=== PATIENT | female | born 1970 | race Caucasian/White ===

== ENCOUNTER 2022-07-23 12:05 | Emergency (ER) | payer OTHER, SELFPAY ==
--- NOTE | ~2022-07-23 | XR_ITS ---
EXAMINATION: XR ankle RT min 3V INDICATION: Right ankle pain TECHNIQUE: Four views of the right ankle are obtained. COMPARISON: None available FINDINGS: Bone alignment is normal. There is a possible tiny avulsion at the tip of the medial malleo kim. There is mild soft tissue swelling of ankle. A plantar calcaneal enthesophyte is noted. IMPRESSION: 1. Possible tiny avulsion injury involving the tip of the medial malleolus. Reviewed, dictated and finalized at location A.
[2022-07-23 12:25] VITALS: BP 134/81; PULSE 82; RESP 18; TEMP 36.7; O2SAT 100
[2022-07-23 12:26] VITALS: BP 134/81; PULSE 82; RESP 18; TEMP 36.7; O2SAT 100
--- NOTE | 2022-07-23 12:26 | ED.GENADULT ---
HPI - General Adult General Chief complaint: Extremity Injury, Lower Stated complaint: Right Ankle Injury Source: patient Mode of arrival: ambulatory Limitations: no limitations History of Present Illness HPI narrative: Patient presents for evaluation of right ankle pain and swelling for the past three days. Symptoms occurred after she twisted her right ankle. She fell down onto concrete. She did not hit her head. No loss of consciousness. She now reports 3 to 5/10 pain in the right ankle. She has associated soft tissue swelling and bruising. She has been applying ice and took some ibuprofen for her symptoms. She is able to tolerate weighbearing. Related Data Home Medications Medication Instructions Recorded Confirmed amlodipine 10 mg tablet 10 mg PO DAILY 07/23/22 07/23/22 duloxetine 60 mg capsule,delayed 60 mg PO DAILY 07/23/22 07/23/22 release metformin 500 mg tablet,extended See Rx Instructions .Route .COMPLEX 07/23/22 07/23/22 release 24 hr omeprazole 20 mg capsule,delayed 20 mg PO BID 07/23/22 07/23/22 release Allergies Allergy/AdvReac Type Severity Reaction Status Date / Time sulfate ion AdvReac Other Verified 07/23/22 12:27 Review of Systems Review of Systems: CONSTITUTIONAL: Denies fever, chills, or sweats. EYES: Denies visual changes, redness, or discharge. ENT: Denies rhinorrhea, congestion, sore throat, or otalgia. CARDIOVASCULAR: Denies chest pain, palpitations, or edema. RESPIRATORY: Denies cough or dyspnea. GASTROINTESTINAL: Denies abdominal pain, nausea, vomiting, or diarrhea. GENITOURINARY: Denies dysuria or hematuria. SKIN: Reports bruising to the right ankle and right foot MUSCULOSKELETAL: Reports pain in the right ankle. NEUROLOGIC: Denies headache, numbness, dizziness, or weakness. PSYCHIATRIC: Denies anxiety or depression. [facility] Past Medical History Medical History (Updated 07/23/22 @ 12:54 by Twin Stroud, CORTNEY, GENET) Anxiety Diabetes Hypertension Surgical History Surgical History History of History of cholecystectomy History of reduction mammoplasty Family History Family History Mother Family history non-contributory Social History Social History (Updated 07/23/22 @ 12:28 by Twin Stroud, [facility], ) Smoking status: Never smoker Substance use: never Gender identity (if verbalized by the patient): Female Exam Narrative: GENERAL: Well-appearing, well-nourished, and in no acute distress. HEAD: Normocephalic, atraumatic. EYES: PERRLA and EOMI. ENT: Nares clear, no rhinorrhea or epistaxis. Mucous membranes moist. Oropharynx without tonsillar hypertrophy exudate or other lesions. Bilateral TMs pearly schmidt nonbulging NECK: Supple. No adenopathy or masses. No carotid bruits or JVD CHEST: Clear to auscultation. No respiratory distress. No wheezes rales or rhonchi HEART: Regular rate and rhythm. No murmur heard. Normal peripheral pulses. ABDOMEN: Soft, nontender, nondistended, normal active bowel sounds. EXTREMITIES: Tenderness noted over lateral aspect of the right ankle. She is able to dorsi and plantar flex right foot. 1+ nonpitting edema to the right ankle. SKIN: Ecchymosis noted to the lateral aspect of her right foot, into medial and lateral aspects of the right ankle NEURO: No focal deficits. Alert and oriented x3. PSYCH: Normal mood and affect. Course Course Emergency Course: This is a 52-year-old female who presented for evaluation of right ankle pain. Questionable avulsion fracture of the medial malleolus on the right. Placed in OCL with ankle stirrup. Provided with crutches. Advised nonweightbearing status until seen by Orthopedics. I offered to provide her with a script for analgesics, but she declined. Follow up with Ortho this week. Go to the ER for intractable pain. Patient in agreement wi
== END 2022-07-23 13:00 | disposition home or self-care (01) ==
PROVIDERS: Emergency Provider Nurse Practitioner
DX: S82.51XA Displaced fracture of medial malleolus of right tibia, initial encounter for closed fracture (principal); W19.XXXA Unspecified fall, initial encounter; E11.9 Type 2 diabetes mellitus without complications; I10 Essential (primary) hypertension; Z79.84 Long term (current) use of oral hypoglycemic drugs
CPT/HCPCS: 29515; 73610; 99214; G0463